=== PATIENT | female | born 1950 | race Caucasian/White ===

== ENCOUNTER 2020-04-23 23:30 | Emergency (ER) | payer MEDICARE, OTHER, MEDICAID ==
[~2020-04-23] VITALS: Ht 154.9 cm; Wt 89.0 kg
[~2020-04-23 23:30] MED LIST: ALDACTONE25 MG PO; ALLOPURINOL 10100 M1 PO; APAP500 PO; ARTIFICIAL TEAR15 M1 OPHTHALMIC; ARTIFICIAL TEARS; ASPIRIN325 PO; BACTRIM DS TAB1 EACH PO; COLACE 100 MG100 MG PO; COZAAR 25 MG TA25 M1 PO; DESYREL50 MG; DESYREL50 MG PO; FUROSEMIDE 40 M40 M1; FUROSEMIDE 40 M40 M1 PO; FUROSEMIDE 40 M40 MG PO; GLUCOVANCE 2.51 EAC1 PO; GLUCOVANCE PO; GLYBURIDE 2.52.5 MG PO; HYDROCHLOROTHIA25 M2 PO; HYDROCHLOROTHIAZIDE PO; HYDROCODONE-AP1 EAC6 PO; KLOR-CON 1010 MEQ PO; MAG-OX 400 TAB400 M1 PO; MAGOX 400400 MG PO; METFORMIN HCL500 MG PO; MIRALAX17 GM PO; MISC; NAPROSYN500 MG; PLAVIX 300 MG300 M1 PO; PLAVIX 75 MG TA75 M1 PO; PLAVIX 75 MG TA75 MG PO; POTASSIUM20; POTASSIUM20 OR; POTASSIUM20 PO; TRAMADOL 50 MG50 MG PO; TRAZODONE HCL50 MG PO; TRIAMTERENE PO; TRIAMTERENE-HC1 EAC3; VITAMIN D1000 UNI1 PO; ZOCOR 20 MG TAB20 M1 PO; ZOFRAN ODT4 MG PO
[2020-04-24] MEDS ORDERED: ONDANSETRON HCL4 M2 PO (00:08)
[2020-04-24] MEDS ORDERED: ZOLOFT25 MG PO (00:09)
[2020-04-24] MEDS ORDERED: MIRAPEX0.25 MG PO (00:10)
[2020-04-24] MEDS ORDERED: LORCET 5-325 M1 EACH PO (00:11)
[2020-04-24] MEDS ORDERED: BUMEX2 MG PO (00:12)
[2020-04-24] MEDS ORDERED: NEURONTIN 300M300 M2 PO (00:13)
[2020-04-24] MEDS ORDERED: AMARYL2 M1 PO (00:13)
[2020-04-24] MEDS ORDERED: KLOR-CON M2020 MEQ PO (00:14)
[2020-04-24] MEDS ORDERED: LORATIDINE 10 M10 M1 PO (00:15)
[2020-04-24] MEDS ORDERED: SENNA8.8 MG/5 M PO (00:16)
[2020-04-24 00:32] LABS: BE -1.2 mmol/L (-2 to +3); PCO2 27.6 mmHg (35.0-45.0); PO2 77.9 mmHg (75.0-100.0); pH 7.501 (7.340-7.450)
[2020-04-24 00:51] LABS: ABSOLUTE BASOPHILS 0.1 thou/uL (0.0-0.2); ABSOLUTE EOSINOPHILS 0.2 thou/uL (0.0-0.7); ABSOLUTE LYMPHOCYTES 1.4 thou/uL (0.8-5.3); ABSOLUTE MONOCYTES 1.5 thou/uL (0.0-1.2); ABSOLUTE NEUTROPHILS 14.9 thou/uL (1.6-8.1); BASOPHILS 0.6 %; EOSINOPHILS 0.9 %; HEMATOCRIT 27.5 % (37.0-47.0); HEMOGLOBIN 9.2 gm/dL (12.0-15.0); LYMPHOCYTES 7.8 %; MCH 31.9 pg (26.0-34.0); MCHC 33.6 g/dL (28.0-37.0); MCV 95.2 fL (80.0-100.0); MONOCYTES 8.5 %; MPV 7.8 fl. (7.2-11.1); NUCLEATED RBCS 0 /100WBC; PLATELET COUNT* 201 thou/uL (150-400); POLYS 82.2 %; RBC 2.89 mil/uL (4.20-5.00); RDW-CV 14.3 % (10.5-14.5); WBC 18.1 thou/uL (4.0-11.0)
[2020-04-24 01:06] LABS: CALCIUM 8.7 mg/dL (8.5-10.1); CREATININE 2.3 mg/dL (0.6-1.3); POTASSIUM 3.7 mmol/L (3.5-5.1)
[2020-04-24 01:10] LABS: ALBUMIN 3.4 g/dL (3.4-5.0); MAGNESIUM 1.6 mg/dL (1.8-2.4); TOTAL BILIRUBIN 0.6 mg/dL (<0.1-1.0); TOTAL PROTEIN 7.3 g/dL (6.4-8.2)
[2020-04-24 02:12] LABS: URINE BILIRUBIN NEGATIVE (Negative); URINE BLOOD NEGATIVE (Negative); URINE CLARITY CLEAR; URINE COLOR YELLOW; URINE GLUCOSE-RANDOM NEGATIVE (Negative); URINE KETONES NEGATIVE (Negative); URINE LEUKOCYTES-REFLEX 1+ (Negative); URINE NITRITE-REFLEX NEGATIVE (Negative); URINE PROTEIN NEGATIVE (Negative); URINE SPECIFIC GRAVITY 1.015 (1.005-1.030); URINE UROBILINOGEN 0.2 E.U./dl (0.2-1.0)
[2020-04-24] MEDS ORDERED: MACROBID 100 M100 M1 PO (02:24)
[2020-04-24 02:46] LABS: SQUAMOUS 4-10 Moderate /LPF (0-3)
[2020-04-24 02:47] LABS: HYALINE CASTS 4-10 Moderate /LPF (None Seen)
[2020-04-24 02:48] LABS: CRYSTALS None Seen /LPF (None Seen); URINE RBC 0-2 Rare /HPF (0-2); WBC CLUMPS Few (None Seen)
[2020-04-24 03:40] VITALS: BP 97/48
== END 2020-04-24 03:40 | disposition home or self-care (01) ==
LOC: M.ERS 23:30
PROVIDERS: Personal Emergency Response Attendant
DX: R53.1 Weakness (principal); Z20.828 Contact with and (suspected) exposure to other viral communicable diseases; E78.00 Pure hypercholesterolemia, unspecified; F17.210 Nicotine dependence, cigarettes, uncomplicated; Z98.51 Tubal ligation status; Z96.642 Presence of left artificial hip joint